=== PATIENT | female | born 2000 ===

== ENCOUNTER 2025-08-06 19:21 | Emergency (ER) | payer OTHER, SELFPAY ==
--- NOTE | ~2025-08-06 | XR_ITS ---
XR knee LT min 4V INDICATION: pain, possible dislocation . COMPARISON: None. FINDINGS: Frontal, lateral and oblique views of the left knee demonstrate no acute fracture or dislocation. There is no joint effusion. IMPRESSION: Radiographic examination of the left knee demonstrates no acute fracture or dislocation. Reviewed, dictated and finalized at location S. [facility] R[facility] MANAGER IMPRESSION: Radiographic examination of the left knee demonstrates no acute fracture or dis location.
[2025-08-06 19:33] VITALS: BP 127/81; PULSE 107; RESP 16; TEMP 36.6; O2SAT 100
--- NOTE | 2025-08-06 20:00 | ED_ITS ---
HPI - Extremity Injury (Lower) General Chief Complaint: Extremity Injury, Lower Stated Complaint: L Knee Pain Time Seen by Provider: 08/06/25 19:55 Source: patient and RN notes reviewed Mode of arrival: ambulatory Limitations: no limitations History of Present Illness HPI Narrative: 25-year-old female Presents Express Care complaining possible knee dislocation. Patient reports approximately 1-1/2 hours ago she reports she dislocated her left knee cap to the lateral side of her knee. Patient says she was able to reduce the dislocation. Since then the patient reports left knee pain. Patient has a history of knee dislocations, she has never had any surgical procedures done. Patient says is the 3rd time her left knee cap is dislocated. Patient's has done anything to help with the pain. Patient denies any numbness, tingling or any other injuries. Patient denies any significant past medical history. Related Data Allergies Allergy/AdvReac Type Severity Reaction Status Date / Time No Known Allergies Allergy Unknown Unverified 11/25/14 14:25 Review of Systems Review of Systems: CONSTITUTIONAL: Denies fever, chills, or sweats. EYES: Denies visual changes, redness, or discharge. ENT: Denies rhinorrhea, congestion, sore throat, or otalgia. CARDIOVASCULAR: Denies chest pain, palpitations, or edema. RESPIRATORY: Denies cough or dyspnea. GASTROINTESTINAL: Denies abdominal pain, nausea, vomiting, or diarrhea. GENITOURINARY: Denies dysuria or hematuria. SKIN: Denies rash, wound, or itching. MUSCULOSKELETAL: Denies back pain, joint pain, or myalgia. Positive for left knee pain NEUROLOGIC: Denies headache, numbness, or weakness. PSYCHIATRIC: Denies anxiety or depression. All other systems reviewed are negative, except as documented in HPI. PMFSH Comments At the time of my signature, I reviewed and agree with the nursing past medical, surgical, social, and family history. There is no relevant family history pertinent to the patient complaint. Exam Narrative: GENERAL: This is a well-nourished, well-developed adult, in no apparent distress. They are non ill-appearing, nontoxic appearing. HEAD: normocephalic, atraumatic. EYES: Sclera clear/white. Vision is grossly intact. Conjunctiva normal. Extraocular movement intact. EARS: External ears normal Hearing grossly intact. NOSE: External nose normal THROAT: Mucous membranes moist NECK: Neck supple CARDIOVASCULAR: Regular rate and rhythm RESPIRATORY: Respiratory rate normal, respiratory effort nonlabored, no respiratory distress NEURO: awake, alert, and oriented to person, place and time. There were no obvious focal neurologic abnormalities. EXTREMITIES: Left knee: No obvious deformity, injury, swelling, bruising, redness. Normal range of motion. Knee is tender throughout. No obvious patellar dislocation. Positive apprehension sign. Capillary refill less than 3 seconds. Normal sensation. Neurovascular status intact distal injury. No valgus or varus laxity. BACK: Nontender without deformity. Course Course Emergency Course: Portions of this record may have been created with voice recognition software Level of Care: Express Care Visit Vital Signs Vital signs: Vital Signs Temperature 97.8 F 08/06/25 19:33 Pulse Rate 107 H 08/06/25 19:33 Respiratory Rate 16 08/06/25 19:33 Blood Pressure 127/81 08/06/25 19:33 Pulse Oximetry 100 08/06/25 19:33 Oxygen Delivery Room Air 08/06/25 19:33 Temperature 97.8 F 08/06/25 19:33 Pulse Rate 107 H 08/06/25 19:33 Respiratory Rate 16 08/06/25 19:33 Blood Pressure 127/81 08/06/25 19:33 Pulse Oximetry 100 08/06/25 19:33 Oxygen Delivery Room Air 08/06/25 19:33 Reviewed Procedures Orthopedic Splinting/Casting Injury #1: Splinting/Casting Date: 08/06/25 Splinting/Casting Time: 20:01 Side: left Lower Extremity Injury Location: knee Lower Extremity Immobilizer: knee immobilizer Splint: prefabricated Pre-Procedure Neuro Vascular Exam: normal Post-Procedure Neuro Vascular Exam: normal Other Orthopedic Equipment: crutches MDM - Extremity Injury (Lower) MDM Narrative Medical decision making narrative: Left knee X-ray is negative for any fractures or acute findings. Positive apprehension sign. Patient's symptoms are clinically consistent with a patella dislocation. Patient placed in knee immobilizer and given crutches. We were for patient to ortho for further evaluation. Discussed physical exam findings. Advised supportive measures and signs/symptoms to go to the ER. Pt is appropriate for outpt treatment and f/u. Differential Diagnosis Differential diagnosis: Likely other (Knee sprain, knee dislocation, patella dislocation, patellar fracture, knee fracture) Imaging Data Radiologist's impression: ITS Impressions Knee X-Ray 08/06/25 19:51 IMPRESSION: Radiographic examination of the left knee demonstrates no acute fracture or dislocation. Critical Care Time Critical Care Time Critical Care Time: No Discharge Plan Discharge Clinical Impression: Left knee dislocation Qualifiers: Encounter type: initial encounter Qualified Code(s): S83.105A - Unspecified dislocation of left knee, initial encounter Patient Disposition: Home Condition: Stable Instructions: Knee Dislocation (ED), Knee Immobilizer (ED) Additional Instructions: The x-ray of your left knee is negative for any fractures or acute findings. It sounds like today you had a knee dislocation. Rest and elevate the leg; use the crutches as needed, you may bear weight on your left leg but the knee immobilizer needs to be on. Keep the knee immobilizer on at all times, he may take it off to shower. You may take ibuprofen 600 mg to 800 mg every 6-8 hours. Do not exceed more than 800 mg of ibuprofen per dose. Do not exceed more than 3200 mg ibuprofen in a day. You may take up to 1000 mg Tylenol every 6-8 hours. Do not exceed 1000 mg per dose, do exceed more than 4000 mg of Tylenol in a day. Follow up with your primary care provider or orthopedist in 3-5 days. Patient Language: Romanian Follow-up/Referrals: PHYSICIAN,CERTIFIED NURSES' AIDE [Primary Care Provider, Internal Medicine] Hirma Delarosa MD [Physician, Orthopedics] Time of Disposition: 20:00
== END 2025-08-06 20:05 | disposition home or self-care (01) ==
DX: S83.105A Unspecified dislocation of left knee, initial encounter (principal); X58.XXXA Exposure to other specified factors, initial encounter
CPT/HCPCS: 73564; 99203; G0463; L1830